=== PATIENT | female | born 1950 | race Caucasian/White ===

== ENCOUNTER 2021-08-02 18:33 | Emergency (ER) | payer OTHER ==
[~2021-08-02] VITALS: Ht 157.5 cm; Wt 53.5 kg
[~2021-08-02 18:33] MED LIST: Cleocin HCl300 MG PO; DILTIAZEM 24HR360 MG PO; DIPH50 PO; EPIPEN 2-P0.3 MG/0.3 IM; GRAPE SEED; LORA1 PO; Lecithin-191200 MG PO; Lisinopril2.5 MG; METPRE4DP PO; Multiple Vitam1 EAC1 PO; Pepcid40 MG PO; Prinivil10 MG PO; TOCO400 PO; VICODIN 5-3001 EACH PO
[2021-08-02 20:00] LABS: BASOPHILS ABSOLUTE AUTO 0.04 K/mm3 (0.00-0.23); BASOPHILS PERCENT AUTO 0 % (0-2); EOSINOPHILS ABSOLUTE AUTO 0.03 K/mm3 (0.00-0.68); EOSINOPHILS PERCENT AUTO 0 % (0-6); Hematocrit 38.3 % (33.0-51.0); IMMATURE GRAN ABSOLUTE AUTO 0.05 K/mm3 (0.00-0.10); IMMATURE GRAN PERCENT AUTO 0 % (0-1); LYMPHOCYTES ABSOLUTE AUTO 1.27 K/mm3 (0.84-5.20); LYMPHOCYTES PERCENT AUTO 9 % (21-46); MONOCYTES ABSOLUTE AUTO 0.93 K/mm3 (0.16-1.47); MONOCYTES PERCENT AUTO 6 % (4-13); Mean Corpuscular HGB 31.9 pg (26.0-34.0); Mean Corpuscular HGB Conc 33.9 g/dL (31.5-36.5); Mean Corpuscular Volume 94 fL (80-100); NEUTROPHILS ABSOLUTE AUTO 12.36 K/mm3 (1.96-9.15); NEUTROPHILS PERCENT AUTO 84 % (41-73); Platelet Count 289 K/mm3 (150-400); RDW Standard Deviation 44.8 fL (35.1-46.3); Red Blood Cell Count 4.08 M/mm3 (3.80-5.20); White Blood Cell Count 14.68 K/mm3 (4.00-11.30)
[2021-08-02 20:15] LABS: International Normalized Ratio 0.93; Prothrombin Time Results 10.1 Sec (9.7-11.5)
[2021-08-02 20:17] LABS: Ethanol (Alcohol), Blood, Med <3 mg/dL
[2021-08-02 20:20] LABS: Alanine Aminotransfer (ALT/SGP 28 U/L (12-78); Albumin, Blood 3.9 g/dL (3.4-5.0); Albumin/Globulin Ratio 1.1 (0.8-1.8); Alk Phos 78 U/L (50-136); Anion Gap 7 mmol/L (6-16); Aspartate Aminotrans (AST/SGOT 21 U/L (12-37); Bilirubin, Total 0.3 mg/dL (0.1-1.0); Blood Urea Nitrogen 26 mg/dL (8-24); CO2, Blood 23 mmol/L (21-32); Calcium, Blood 9.2 mg/dL (8.5-10.1); Chloride, Blood 109 mmol/L (98-108); Globulin, Blood 3.4 g/dL (2.2-4.0); Glomerular Filtration Rate 55 (60-); Glucose, Blood 117 mg/dL (70-99); Potassium, Blood 4.1 mmol/L (3.5-5.5); Sodium, Blood 139 mmol/L (136-145); Total Protein, Blood 7.3 g/dL (6.4-8.2)
[2021-08-02] MEDS ORDERED: Prinivil10 MG PO (21:35)
[2021-08-02] MEDS ORDERED: AMOCLA875 PO (23:48)
== END 2021-08-03 00:13 | disposition home or self-care (01) ==
LOC: ER 18:33
PROVIDERS: Emergency Medicine Emergency Medical Services
DX: K52.9 Noninfective gastroenteritis and colitis, unspecified (principal); I10 Essential (primary) hypertension; E78.5 Hyperlipidemia, unspecified; Z88.1 Allergy status to other antibiotic agents; Z91.030 Bee allergy status; Z88.2 Allergy status to sulfonamides; Z88.5 Allergy status to narcotic agent; Z79.899 Other long term (current) drug therapy
CPT/HCPCS: 36415; 74177; 80053; 83690; 85025; 85610; 86850; 86900; 86901; 99285-25; A9270; G0480; Q9967

== ENCOUNTER 2022-08-28 07:49 | Day surgery (SDC) | payer OTHER ==
[~2022-08-28] VITALS: Ht 160 cm; Wt 51.7 kg
[~2022-08-28 07:49] MED LIST changes: +AMOCLA875 PO
--- NOTE | 2022-08-28 10:05 | NUR ---
08/28/22 Tita Vivar PT REQUESTED THAT ALL PATHOLOGY BE SENT TO [facility] FOR PROCESSING. HANY CORRAL CHARGE NURSE CALLED [facility] TO HAVE A MATERIAL [employer]LING EQU[employer]MENT [employer] SERVICE PICK THEM UP HERE AND TAKE THEM TO [facility].
== END 2022-08-28 10:15 | disposition home or self-care (01) ==
LOC: ORSCSDS 07:49
PROVIDERS: Internal Medicine Gastroenterology
PROC: 0DBL8ZX Excision of Transverse Colon, Via Natural or Artificial Opening Endoscopic, Diagnostic (ICD-10-PCS; principal; 2022-08-28 09:00)
PROC: 3E0H8KZ Introduction of Other Diagnostic Substance into Lower GI, Via Natural or Artificial Opening Endoscopic (ICD-10-PCS; principal; 2022-08-28 09:00)
PROC: 0DBM8ZX Excision of Descending Colon, Via Natural or Artificial Opening Endoscopic, Diagnostic (ICD-10-PCS; principal; 2022-08-28 09:00)
DX: Z12.11 Encounter for screening for malignant neoplasm of colon (principal); Z86.010 Personal history of colon polyps; Z80.0 Family history of malignant neoplasm of digestive organs; D12.3 Benign neoplasm of transverse colon; D12.4 Benign neoplasm of descending colon; K57.30 Diverticulosis of large intestine without perforation or abscess without bleeding; I10 Essential (primary) hypertension; F17.210 Nicotine dependence, cigarettes, uncomplicated
CPT/HCPCS: J2704; J7120